=== PATIENT | female | born 1970 | race Caucasian/White ===

== ENCOUNTER 2016-10-25 07:07 | Inpatient (IN) | payer OTHER ==
[~2016-10-25] VITALS: Ht 165.1 cm; Wt 100.0 kg
[~2016-10-25 07:07] MED LIST: ADVAIR; ADVAIR 500-501 EACH IH; ADVAIR 500/501 DISK IH; ADVAIR HFA120 INHAL1 IH; AMITRIPTYLINE H10 MG PO; AMITRIPTYLINE H25 MG PO; ATARAX,VISTARIL25 MG PO; AVELOX400 MG PO; AZITHROMYCIN250 MG PO; Advair HFA 230/21 IH; BUDESONIDE EC3 MG PO; BUSPAR5 MG PO; BUSPIRONE HCL5 MG PO; BUTALB-APAP-CA1 EACH PO; CARAFATE100 MG/ML PO; CARDIZEM60 MG PO; CEFDINIR300 MG PO; CEFTIN500 MG PO; CELEXA40 MG PO; CIPRO500 MG PO; CLARITIN,ALAVAR10 MG PO; CLARITIN-D 121 EACH PO; CLARITIN10 MG PO; CLONAZEPAM0.5 MG PO; COLACE100 MG PO; CRESTOR10 MG PO; CYCLOBENZAPRINE10 MG PO; DELTASONE10 MG PO; DELTASONE20 M1 PO; DELTASONE20 MG PO; DIAMOX250 MG PO; DILTIAZEM 24HR240 MG PO; ELAVIL25 MG PO; ENTOCORT EC3 MG PO; FLAGYL500 MG PO; FLEXERIL10 MG PO; FLONASE16 G1 BOTH NARES; FLONASE16 GM NS; FLOVENT 22120 INHALA IH; FLUTICASONE PRO16 GM BOTH NARES; Flexeril PO; Flonase BOTH NARES; IMITREX6 MG/0.52 SC; IRON325 M1 PO; KLONOPIN2 MG PO; LEVAQUIN750 MG PO; LITE COAT ASPI325 M1 PO; LUMIGAN 0.50 DROP/22 BOTH EYES; Levaquin PO; MAALOX ADVANCE355 ML PO; MELATONIN5 M1 PO; MONTELUKAST SOD10 MG PO; MYCOSTATIN 100,60 ML PO; Mycostatin PO; NASAL DECONGEST30 MG PO; NEXIUM40 MG PO; ONDANSETRON HCL4 MG PO; OxyCODONE PO; PENTASA250 MG PO; PERCOCET 5/31 TABLET PO; PHENERGAN25 MG PR; PRAVASTATIN SOD40 MG PO; PREDNISONE10 MG PO; PREDNISONE20 MG PO; PREDNISONE5 MG PO; PREDNISONE50 MG PO; PROAIR; PROAIR HFA8.5 GM IH; PROMETHAZINE HC25 M1 PO; PROTONIX40 MG PO; PROVENTIL HFA6.7 GM IH; PROVENTIL,2.5 MG/0.5 IH; PROVENTIL,2.5 MG/3 M IH; PROVENTIL2.5 MG/3 M IH; PSEUDOEPHEDRINE30 MG PO; PULMICORT FLE180 MCG IH; PULMICORT0.5 MG/21 BOTH NARES; PULMICORT1 MG/2 ML IH; Protonix PO; Proventil,Ventolin 0 IH; Proventil,Ventolin H IH; REGLAN10 MG PO; SALINE NASAL SP45 ML BOTH NARES; SINGULAIR; SINGULAIR10 MG PO; SPIRIVA RESPIMAT4 GM IH; SPIRIVA1 INHALATI IH; SUCRALFATE1 GM/10 ML PO; SUDAFED30 MG PO; SUPHEDRIN30 MG PO; SYMBICORT60 INHALAT IH; Singulair PO; Sterapred 5 mg Uni-P PO; THEO-DUR,THEOC200 MG PO; THEO-DUR,THEOC300 MG PO; THEOCHRON200 MG PO; TOPAMAX100 MG PO; TOPAMAX50 MG PO; TRAMADOL HCL50 MG PO; TUMS500 MG PO; TYLENOL REGULA325 MG PO; Theo-Dur,Theocron PO; Tums,OsCal PO; ULTRAM50 MG PO; Ultram PO; VITAMIN D2000 UNIT PO; VITAMIN D22000 UNIT PO; XOLAIR150 MG SC; Xanax PO; ZANTAC150 MG PO; ZOFRAN4 MG PO; ZYRTEC10 M2 PO; ZyrTEC PO; [UNRECOGNIZED DRUG - OTHER]; [UNRECOGNIZED DRUG - OTHER]; [UNRECOGNIZED DRUG - OTHER] PO; [UNRECOGNIZED DRUG - OTHER] PO; oxyCODONE PO; predniSONE PO
[2016-10-25 07:52] LABS: HEMATOCRIT 42.9 % (36.0-46.0); MCH 27.3 PG (29.0-34.0); MCHC 32.4 G/DL (30.0-36.0); MCV 84.3 FL (83-99); MEAN PLAT.VOLUME 9.6 uM^3 (9.5-12.4); PLATELET COUNT 342 K/uL (156-360); RBC DIS.WIDTH-CV 15.1 % (11.8-14.6); RBC DIS.WIDTH-SD 46.3 % (39-53); RED BLOOD COUNT 5.09 M/uL (3.80-5.20); WHITE BLOOD COUNT 9.6 K/uL (4.1-10.2)
[2016-10-25 07:58] LABS: CARBON DIOXIDE (BICARBONATE) 27.9 MEQ/L (20-31)
[2016-10-25 08:28] LABS: ANION GAP 10 MEQ/L (2-14); CHLORIDE 105 MEQ/L (99-109); GFR ESTIMATE (CALCULATED) > 59 mL/min/; GLUCOSE 88 mg/dL (70-99); POTASSIUM 3.6 MEQ/L (3.7-5.4); SAMPLE HEMOLYSIS CHECK 0; SAMPLE ICTERIC CHECK 0; SAMPLE LIPEMIA CHECK 0; SODIUM 140 MEQ/L (136-147); UREA NITROGEN (BUN) 10 mg/dL (9-23)
[2016-10-25 08:32] LABS: QUANTITATIVE HCG < 4.0 MIU/ML
[2016-10-25 08:44] LABS: THEOPHYLLINE < 2.5 MCG/ML (10-20)
[2016-10-25] MEDS ORDERED: VITAMIN D5000 UNI1 PO (11:00)
[2016-10-25] MEDS ORDERED: TOPAMAX25 MG PO (11:05)
[2016-10-25] MEDS ORDERED: BREO ELLIPTA 21 EACH IH (11:07)
[2016-10-25] MEDS ORDERED: PROTONIX40 MG PO (11:07)
[2016-10-25] MEDS ORDERED: FLEXERIL10 MG PO (11:08)
[2016-10-25] MEDS ORDERED: TRAMADOL HCL50 MG PO (11:08)
[2016-10-25] MEDS ORDERED: WOMAN'S LAXATIVE5 M1 PO (11:12)
[2016-10-25 12:25] VITALS: BP 142/91
[2016-10-25 15:15] VITALS: BP 125/67
[2016-10-25 20:24] VITALS: BP 119/63
[2016-10-26] VITALS (7 sets, daily range): BP systolic 96–144; BP diastolic 51–71
[2016-10-26 12:30] LABS: INFLUENZA A VIRAL ANTIGEN NEGATIVE; INFLUENZA B VIRAL ANTIGEN NEGATIVE
[2016-10-27 03:55] VITALS: BP 109/55
[2016-10-27 08:04] LABS: ALKALINE PHOSPHATASE 62 IU/L (3-129); ANION GAP 13 MEQ/L (2-14); CHLORIDE 103 MEQ/L (99-109); GFR ESTIMATE (CALCULATED) 52 mL/min/; GLUCOSE 124 mg/dL (70-99); POTASSIUM 4.2 MEQ/L (3.7-5.4); SAMPLE HEMOLYSIS CHECK 0; SAMPLE ICTERIC CHECK 0; SAMPLE LIPEMIA CHECK 0; SODIUM 138 MEQ/L (136-147); TOTAL BILIRUBIN 0.2 MG/DL (0.0-1.0)
[2016-10-27 08:07] LABS: UREA NITROGEN (BUN) 23 mg/dL (9-23)
[2016-10-27 08:12] LABS: HEMATOCRIT 40.2 % (36.0-46.0); MCHC 32.1 G/DL (30.0-36.0); MCV 84.1 FL (83-99); PLATELET COUNT 353 K/uL (156-360); RBC DIS.WIDTH-CV 16.3 % (11.8-14.6); RBC DIS.WIDTH-SD 50.7 % (39-53); RED BLOOD COUNT 4.78 M/uL (3.80-5.20)
[2016-10-27 08:18] LABS: WHITE BLOOD COUNT 24.8 K/uL (4.1-10.2)
[2016-10-27 08:24] LABS: ABS NEUTROPHIL COUNT 23.6; BAND NEUTROPHILS 2.2 % (0-8.0); EOSINOPHIL ABS CT 0; INSTRUMENT ABS NEUTROPHIL CT 23.2 K/uL; LYMPHOCYTES 2.2 % (15.0-45.0); PLAT.SUFFICIENCY ADEQUATE
[2016-10-27 12:35] VITALS: BP 122/65
[2016-10-27 17:16] VITALS: BP 125/66
[2016-10-27 19:25] VITALS: BP 119/55
[2016-10-27 23:26] VITALS: BP 115/53
[2016-10-28 08:00] VITALS: BP 123/64
[2016-10-28 08:34] LABS: HEMATOCRIT 38.9 % (36.0-46.0); MCHC 32.1 G/DL (30.0-36.0); MEAN PLAT.VOLUME 9.7 uM^3 (9.5-12.4); PLATELET COUNT 344 K/uL (156-360); RBC DIS.WIDTH-CV 16.5 % (11.8-14.6); RBC DIS.WIDTH-SD 50.6 % (39-53); RED BLOOD COUNT 4.63 M/uL (3.80-5.20); WHITE BLOOD COUNT 22.5 K/uL (4.1-10.2)
[2016-10-28 09:06] LABS: ALKALINE PHOSPHATASE 58 IU/L (3-129); ANION GAP 14 MEQ/L (2-14); CHLORIDE 108 MEQ/L (99-109); GFR ESTIMATE (CALCULATED) 57 mL/min/; GLUCOSE 119 mg/dL (70-99); POTASSIUM 4.2 MEQ/L (3.7-5.4); SAMPLE HEMOLYSIS CHECK 0; SAMPLE ICTERIC CHECK 0; SAMPLE LIPEMIA CHECK 0; SODIUM 144 MEQ/L (136-147); UREA NITROGEN (BUN) 22 mg/dL (9-23)
[2016-10-28 09:10] LABS: TOTAL BILIRUBIN 0.3 MG/DL (0.0-1.0)
[2016-10-28 15:35] VITALS: BP 107/51
[2016-10-28 15:36] VITALS: BP 125/58
[2016-10-28 19:30] VITALS: BP 117/58
[2016-10-29 00:06] VITALS: BP 122/61
[2016-10-29 03:21] VITALS: BP 120/57
[2016-10-29 08:32] VITALS: BP 128/65
[2016-10-29 09:29] LABS: HEMATOCRIT 39.9 % (36.0-46.0); MCHC 32.3 G/DL (30.0-36.0); MCV 83.6 FL (83-99); MEAN PLAT.VOLUME 9.4 uM^3 (9.5-12.4); PLATELET COUNT 347 K/uL (156-360); RBC DIS.WIDTH-CV 16.5 % (11.8-14.6); RBC DIS.WIDTH-SD 51.2 % (39-53); RED BLOOD COUNT 4.77 M/uL (3.80-5.20); WHITE BLOOD COUNT 17.5 K/uL (4.1-10.2)
[2016-10-29 10:08] LABS: ALKALINE PHOSPHATASE 63 IU/L (3-129); ANION GAP 12 MEQ/L (2-14); CHLORIDE 102 MEQ/L (99-109); GFR ESTIMATE (CALCULATED) 57 mL/min/; GLUCOSE 177 mg/dL (70-99); POTASSIUM 3.9 MEQ/L (3.7-5.4); SAMPLE HEMOLYSIS CHECK 0; SAMPLE ICTERIC CHECK 0; SAMPLE LIPEMIA CHECK 0; SODIUM 137 MEQ/L (136-147); TOTAL BILIRUBIN 0.3 MG/DL (0.0-1.0); UREA NITROGEN (BUN) 21 mg/dL (9-23)
[2016-10-29 10:44] VITALS: BP 130/69
[2016-10-29] MEDS ORDERED: AMOX TR-K CLV1 EAC4 PO (11:26)
[2016-10-29] MEDS ORDERED: SPIRIVA RESPIMAT4 GM IH (11:26)
[2016-10-29] MEDS ORDERED: ADVAIR HFA120 INHAL1 IH (11:29)
[2016-10-29] MEDS ORDERED: DUONEB 2.5-0.5 M3 ML AEROSOL (11:30)
[2016-10-29] MEDS ORDERED: THEO-DUR,THEOC300 MG PO (11:31)
[2016-10-29] MEDS ORDERED: DOCUSATE SODIU100 MG PO (11:31)
[2016-10-29] MEDS ORDERED: POLYETHYLENE GL17 GM PO (11:32)
[2016-10-29] MEDS ORDERED: PREDNISONE10 MG PO (11:35)
== END 2016-10-29 13:02 | disposition home or self-care (01) | DRG 203 ==
LOC: EME 07:07 → 2EAST 11:17 → EDOF 11:17 → 2EAST 12:17
PROVIDERS: Hospitalist; Nurse Practitioner Adult Health; Nurse Practitioner Family
DX: J45.51 Severe persistent asthma with (acute) exacerbation (principal); J32.9 Chronic sinusitis, unspecified; J30.9 Allergic rhinitis, unspecified; G47.33 Obstructive sleep apnea (adult) (pediatric); K21.9 Gastro-esophageal reflux disease without esophagitis; I10 Essential (primary) hypertension; F41.9 Anxiety disorder, unspecified; R00.0 Tachycardia, unspecified; E66.9 Obesity, unspecified; G43.909 Migraine, unspecified, not intractable, without status migrainosus; Z91.14 Patient's other noncompliance with medication regimen; Z68.36 Body mass index [BMI] 36.0-36.9, adult; I25.2 Old myocardial infarction; Z95.1 Presence of aortocoronary bypass graft; Z86.73 Personal history of transient ischemic attack (TIA), and cerebral infarction without residual deficits; Z79.82 Long term (current) use of aspirin
CPT/HCPCS: 71020; 80048; 80053; 80198; 82248; 82803; 84702; 85025; 85027; 87502; 93005; 94640; 94640 76; 94644; 94799; 99202; 99281; 99285; J1200; J2060; J2405; J2930; J7512; S0028

== ENCOUNTER 2017-01-05 20:03 | Observation (INO) | payer OTHER ==
[~2017-01-05] VITALS: Ht 165.1 cm; Wt 97.0 kg
[~2017-01-05 20:03] MED LIST changes: +AMOX TR-K CLV1 EAC4 PO; +BREO ELLIPTA 21 EACH IH; +DOCUSATE SODIU100 MG PO; +DUONEB 2.5-0.5 M3 ML AEROSOL; +POLYETHYLENE GL17 GM PO; +TOPAMAX25 MG PO; +VITAMIN D5000 UNI1 PO; +WOMAN'S LAXATIVE5 M1 PO
[2017-01-05 20:33] LABS: HEMATOCRIT 43.6 % (36.0-46.0); MCH 27.8 PG (29.0-34.0); MCHC 32.8 G/DL (30.0-36.0); MCV 84.8 FL (83-99); PLATELET COUNT 407 K/uL (156-360); RBC DIS.WIDTH-CV 15.7 % (11.8-14.6); RBC DIS.WIDTH-SD 48.4 % (39-53); RED BLOOD COUNT 5.14 M/uL (3.80-5.20); WHITE BLOOD COUNT 13.6 K/uL (4.1-10.2)
[2017-01-05 20:42] LABS: CHLORIDE 109 mEq/L (99-109); POTASSIUM 3.2 mEq/L (3.7-5.4); SODIUM 141 mEq/L (136-147)
[2017-01-05 20:44] LABS: GLUCOSE 94 mg/dL (70-99)
[2017-01-05 20:45] LABS: ANION GAP 14 MEQ/L (2-14)
[2017-01-05] MEDS ORDERED: BUSPAR10 MG PO (20:45)
[2017-01-05 20:46] LABS: TOTAL BILIRUBIN 0.2 mg/dL (0.0-1.0)
[2017-01-05] MEDS ORDERED: proair (20:46)
[2017-01-05] MEDS ORDERED: symbicort (20:46)
[2017-01-05 20:47] LABS: ALKALINE PHOSPHATASE 71 IU/L (3-129)
[2017-01-05] MEDS ORDERED: ZYRTEC10 M2 PO (20:47)
[2017-01-05] MEDS ORDERED: sudafed (20:47)
[2017-01-05 20:48] LABS: GFR ESTIMATE (CALCULATED) 43 mL/min/
[2017-01-05 20:49] LABS: UREA NITROGEN (BUN) 18 mg/dL (9-23)
[2017-01-05 20:56] LABS: QUANTITATIVE HCG < 4.0 MIU/ML
[2017-01-06 03:29] VITALS: BP 167/107
[2017-01-06 06:49] LABS: BASOPHIL COUNT 0.1 K/uL (0-0.1); EOSINOPHIL (%) 14.2 % (0-5); EOSINOPHIL COUNT 1.8 K/uL (0-0.3); IMMATURE GRANULOCYTE (%) 0.4 % (0.0-0.7); IMMATURE GRANULOCYTE COUNT 0.1 K/uL; INSTRUMENT ABS NEUTROPHIL CT 6.4 K/uL; LYMPHOCYTE COUNT 3.7 K/uL (1.0-2.8); MCH 28.9 PG (29.0-34.0); MCHC 33.3 G/DL (30.0-36.0); MCV 86.8 FL (83-99); MEAN PLAT.VOLUME 9.4 uM^3 (9.5-12.4); MONOCYTE (%) 5.7 % (3-12); MONOCYTE COUNT 0.7 K/uL (0-0.8); NEUTROPHIL (%) 49.9 % (45-76); NEUTROPHIL COUNT 6.4 K/uL (1.8-6.4); PLATELET COUNT 344 K/uL (156-360); RBC DIS.WIDTH-CV 15.9 % (11.8-14.6); RBC DIS.WIDTH-SD 50.3 % (39-53); RED BLOOD COUNT 4.61 M/uL (3.80-5.20); WHITE BLOOD COUNT 12.8 K/uL (4.1-10.2)
[2017-01-06 07:19] LABS: ANION GAP 11 MEQ/L (2-14); CHLORIDE 107 MEQ/L (99-109); GFR ESTIMATE (CALCULATED) 52 mL/min/; GLUCOSE 136 mg/dL (70-99); POTASSIUM 3.2 MEQ/L (3.7-5.4); SAMPLE HEMOLYSIS CHECK 0; SAMPLE ICTERIC CHECK 0; SAMPLE LIPEMIA CHECK 0; SODIUM 141 MEQ/L (136-147); UREA NITROGEN (BUN) 14 mg/dL (9-23)
[2017-01-06 09:10] VITALS: BP 125/71
[2017-01-06 12:07] VITALS: BP 130/74
[2017-01-06 12:10] LABS: ADD MIUA? YES; BILIRUBIN NEGATIVE; BLOOD SMALL; COLOR YELLOW ((YELLOW)); GLUCOSE (STRIP) NEGATIVE; KETONES NEGATIVE; LEUKOCYTES NEGATIVE; NITRITE NEGATIVE; PROTEIN (STRIP) NEGATIVE; SPECIFIC GRAVITY 1.041 (1.000-1.030); UROBILINOGEN 0.2 MG/DL (0.2-1.0)
[2017-01-06 13:12] LABS: BACTERIA NONE SEEN /HPF; EPITHELIAL CELLS 2+ /HPF; MUCUS TRACE /LPF; RED BLOOD CELLS 0-5 /HPF (0-5); UCUL ADDED? NO; WHITE BLOOD CELLS 0-5 /HPF (0-5)
[2017-01-06 16:42] VITALS: BP 177/94
[2017-01-06 20:24] VITALS: BP 136/84
[2017-01-06] MEDS ORDERED: BREO ELLIPTA 21 EACH IH (21:09)
[2017-01-06] MEDS ORDERED: SYMBICORT60 INHALAT IH (21:11)
[2017-01-06 23:39] VITALS: BP 125/66
[2017-01-07 04:05] VITALS: BP 123/79
[2017-01-07 07:11] VITALS: BP 131/81
[2017-01-07 10:46] VITALS: BP 138/80
[2017-01-07] MEDS ORDERED: PANTOPRAZOLE SO40 MG PO (14:08)
[2017-01-07] MEDS ORDERED: MYCOSTATIN 100,60 ML PO (14:09)
[2017-01-07] MEDS ORDERED: TRAMADOL HCL50 MG PO (15:26)
== END 2017-01-07 17:22 | disposition home or self-care (01) ==
LOC: EME 20:03 → EDOF 01-06 02:29 → 5WEST 01-06 02:29
PROVIDERS: Hospitalist
DX: R10.84 Generalized abdominal pain (principal); K29.70 Gastritis, unspecified, without bleeding; K29.80 Duodenitis without bleeding; B37.81 Candidal esophagitis; R11.2 Nausea with vomiting, unspecified; K44.9 Diaphragmatic hernia without obstruction or gangrene; N17.9 Acute kidney failure, unspecified; E87.6 Hypokalemia; J45.909 Unspecified asthma, uncomplicated; R19.5 Other fecal abnormalities; E87.2 Acidosis; E86.0 Dehydration; I47.1 Supraventricular tachycardia; G43.909 Migraine, unspecified, not intractable, without status migrainosus; J32.9 Chronic sinusitis, unspecified; I10 Essential (primary) hypertension; K21.9 Gastro-esophageal reflux disease without esophagitis; Z86.73 Personal history of transient ischemic attack (TIA), and cerebral infarction without residual deficits; E66.9 Obesity, unspecified; Z98.818 Other dental procedure status; Z79.82 Long term (current) use of aspirin
CPT/HCPCS: 71020; 74177; 80048; 80053; 80198; 81003; 82272; 84702; 85025; 85027; 87493; 88305; 88312; 88342 TC; 94640; 94640 76; 99202; 99281; 99284; C9113; G0378; J1170; J1630; J2270; J2405; J3010; J3480; J7030

== ENCOUNTER 2017-01-12 17:34 | Emergency (ER) | payer OTHER ==
[~2017-01-12] VITALS: Ht 162.6 cm; Wt 90.8 kg
[~2017-01-12 17:34] MED LIST changes: +BUSPAR10 MG PO; +PANTOPRAZOLE SO40 MG PO; +proair; +sudafed; +symbicort
[2017-01-12 18:42] LABS: HEMATOCRIT 39.2 % (36.0-46.0); MCH 28.3 PG (29.0-34.0); MCHC 32.7 G/DL (30.0-36.0); MCV 86.7 FL (83-99); MEAN PLAT.VOLUME 9.5 uM^3 (9.5-12.4); PLATELET COUNT 306 K/uL (156-360); RBC DIS.WIDTH-CV 15.6 % (11.8-14.6); RBC DIS.WIDTH-SD 49.4 % (39-53); RED BLOOD COUNT 4.52 M/uL (3.80-5.20); WHITE BLOOD COUNT 11.2 K/uL (4.1-10.2)
[2017-01-12 18:52] LABS: CHLORIDE 108 mEq/L (99-109); SODIUM 141 mEq/L (136-147)
[2017-01-12 18:53] LABS: POTASSIUM 3.9 mEq/L (3.7-5.4)
[2017-01-12 18:54] LABS: GLUCOSE 86 mg/dL (70-99)
[2017-01-12 18:55] LABS: ANION GAP 8 MEQ/L (2-14)
[2017-01-12 18:56] LABS: TOTAL BILIRUBIN 0.2 mg/dL (0.0-1.0)
[2017-01-12 18:58] LABS: ALKALINE PHOSPHATASE 66 IU/L (3-129); GFR ESTIMATE (CALCULATED) 57 mL/min/
[2017-01-12 18:59] LABS: UREA NITROGEN (BUN) 10 mg/dL (9-23)
[2017-01-12] MEDS ORDERED: ULTRAM50 MG PO (20:14)
[2017-01-12 20:28] VITALS: BP 144/84
== END 2017-01-12 20:29 | disposition home or self-care (01) ==
LOC: EME 17:34
PROVIDERS: Emergency Medicine
DX: R60.9 Edema, unspecified (principal); I10 Essential (primary) hypertension; I25.2 Old myocardial infarction; K21.9 Gastro-esophageal reflux disease without esophagitis; Z95.1 Presence of aortocoronary bypass graft
CPT/HCPCS: 80053; 85027; 99281; 99284; G0480

== ENCOUNTER 2017-04-26 16:21 | Observation (INO) | payer OTHER ==
[~2017-04-26] VITALS: Ht 162.6 cm; Wt 98.1 kg
[2017-04-26 18:09] LABS: TROP-I INTERPRETATION NEGATIVE; TROPONIN-I < 0.01 ng/mL (0.0-0.30)
[2017-04-26 18:13] LABS: HEMATOCRIT 41.8 % (36.0-46.0); MCH 28.4 PG (29.0-34.0); MCHC 33.3 G/DL (30.0-36.0); MCV 85.5 FL (83-99); MEAN PLAT.VOLUME 10.1 uM^3 (9.5-12.4); PLATELET COUNT 331 K/uL (156-360); RBC DIS.WIDTH-CV 14.9 % (11.8-14.6); RBC DIS.WIDTH-SD 46.5 % (39-53); RED BLOOD COUNT 4.89 M/uL (3.80-5.20); WHITE BLOOD COUNT 11.7 K/uL (4.1-10.2)
[2017-04-26 18:19] LABS: CHLORIDE 109 mEq/L (99-109); POTASSIUM 3.5 mEq/L (3.7-5.4); SODIUM 142 mEq/L (136-147)
[2017-04-26 18:21] LABS: GLUCOSE 105 mg/dL (70-99)
[2017-04-26 18:22] LABS: ANION GAP 12 MEQ/L (2-14)
[2017-04-26 18:25] LABS: GFR ESTIMATE (CALCULATED) > 59 mL/min/; UREA NITROGEN (BUN) 11 mg/dL (9-23)
[2017-04-26 18:33] LABS: QUANTITATIVE HCG < 4.0 MIU/ML
[2017-04-26] MEDS ORDERED: POTASSIUM-9999 MG PO (19:47)
[2017-04-26] MEDS ORDERED: FLEXERIL10 MG PO (19:48)
[2017-04-26] MEDS ORDERED: ZANTAC150 MG PO (19:49)
[2017-04-26] MEDS ORDERED: SUDAFED PE PRE1 EACH PO (19:52)
[2017-04-26] MEDS ORDERED: PROAIR HFA8.5 GM IH (19:53)
[2017-04-26] MEDS ORDERED: CHERATUSSIN AC473 ML PO (19:55)
[2017-04-26] MEDS ORDERED: IRON325 M1 PO (19:55)
[2017-04-26] MEDS ORDERED: STOOL SOFTENER100 M1 PO (19:57)
[2017-04-26 22:13] VITALS: BP 137/91
[2017-04-27] VITALS (7 sets, daily range): BP systolic 117–133; BP diastolic 51–88
[2017-04-27 06:28] LABS: ANION GAP 12 MEQ/L (2-14); CHLORIDE 104 MEQ/L (99-109); GFR ESTIMATE (CALCULATED) > 59 mL/min/; SAMPLE HEMOLYSIS CHECK 0; SAMPLE ICTERIC CHECK 0; SAMPLE LIPEMIA CHECK 0; SODIUM 137 MEQ/L (136-147); UREA NITROGEN (BUN) 12 mg/dL (9-23)
[2017-04-27 06:32] LABS: GLUCOSE 228 mg/dL (70-99)
[2017-04-27 12:53] LABS: TROP-I INTERPRETATION NEGATIVE; TROPONIN-I < 0.01 ng/mL (0.0-0.30)
[2017-04-28 04:05] VITALS: BP 125/60
[2017-04-28 07:54] VITALS: BP 122/73
[2017-04-28 10:59] VITALS: BP 134/65
[2017-04-28] MEDS ORDERED: PROAIR HFA8.5 GM IH (12:45)
[2017-04-28] MEDS ORDERED: DILTIAZEM 24HR240 MG PO (12:46)
[2017-04-28] MEDS ORDERED: TOPIRAMATE100 MG PO (12:46)
[2017-04-28] MEDS ORDERED: BREO ELLIPTA 21 EACH IH (12:48)
[2017-04-28] MEDS ORDERED: FLONASE16 G1 BOTH NARES (12:48)
[2017-04-28] MEDS ORDERED: CARAFATE100 MG/ML PO (12:49)
[2017-04-28] MEDS ORDERED: IMITREX25 MG PO (12:52)
[2017-04-28] MEDS ORDERED: THEO-DUR,THEOC300 MG PO (12:57)
[2017-04-28] MEDS ORDERED: PREDNISONE10 MG PO (12:57)
[2017-04-28] MEDS ORDERED: BUSPAR10 MG PO (13:00)
[2017-04-28] MEDS ORDERED: MYCOSTATIN 100,60 ML PO (13:16)
== END 2017-04-28 18:09 | disposition home or self-care (01) ==
LOC: EME 16:21 → EDOF 20:13 → 5WEST 20:13 → EDOF 20:13 → ENRESERV 20:18 → 5WEST 21:55
PROVIDERS: Hospitalist; Internal Medicine Cardiovascular Disease; Nurse Practitioner Family
DX: R07.89 Other chest pain (principal); R00.0 Tachycardia, unspecified; J45.901 Unspecified asthma with (acute) exacerbation; D72.829 Elevated white blood cell count, unspecified; R47.1 Dysarthria and anarthria; G43.909 Migraine, unspecified, not intractable, without status migrainosus; I10 Essential (primary) hypertension; K21.9 Gastro-esophageal reflux disease without esophagitis; Z86.73 Personal history of transient ischemic attack (TIA), and cerebral infarction without residual deficits; Z83.2 Family history of diseases of the blood and blood-forming organs and certain disorders involving the immune mechanism; E66.9 Obesity, unspecified; Z68.37 Body mass index [BMI] 37.0-37.9, adult; E87.6 Hypokalemia; J32.9 Chronic sinusitis, unspecified; Z91.19 Patient's noncompliance with other medical treatment and regimen; Z88.6 Allergy status to analgesic agent
CPT/HCPCS: 70450; 71020; 71275; 80048; 83880; 84484; 84702; 85027; 85379; 93005; 93306; 93970; 94640; 94640 76; 94760; 94799; 99202; 99281; 99285; G0378; J1650; J2405; J2930; J7512

== ENCOUNTER 2017-07-29 01:15 | Emergency (ER) | payer OTHER ==
[~2017-07-29] VITALS: Ht 165.1 cm; Wt 101.0 kg
[~2017-07-29 01:15] MED LIST changes: +CALCIUM + D 601 EACH PO; +CHERATUSSIN AC473 ML PO; +CYTOMEL25 MCG PO; +IMITREX25 MG PO; +OXYCODONE5 MG PO; +POTASSIUM-9999 MG PO; +STOOL SOFTENER100 M1 PO; +SUDAFED PE PRE1 EACH PO; +TOPIRAMATE100 MG PO
[2017-07-29 02:02] LABS: HEMATOCRIT 43.2 % (36.0-46.0); HEMOGLOBIN 14.7 G/DL (11.9-15.5); MCH 28.7 PG (29.0-34.0); MCV 84.4 FL (83-99); PLATELET COUNT 363 K/uL (156-360); RBC DIS.WIDTH-CV 14.5 % (11.8-14.6); RBC DIS.WIDTH-SD 44.3 % (39-53); RED BLOOD COUNT 5.12 M/uL (3.80-5.20); WHITE BLOOD COUNT 16.2 K/uL (4.1-10.2)
[2017-07-29 02:14] LABS: CHLORIDE 106 mEq/L (99-109); POTASSIUM 3.8 mEq/L (3.7-5.4); SODIUM 137 mEq/L (136-147)
[2017-07-29 02:16] LABS: GLUCOSE 128 mg/dL (70-99)
[2017-07-29 02:19] LABS: SERUM ETHYL ALCOHOL 156 mg/dL
[2017-07-29 02:20] LABS: CREATININE 0.9 mg/dL (0.6-1.3); GFR ESTIMATE (CALCULATED) > 59 mL/min/
[2017-07-29 02:21] LABS: UREA NITROGEN (BUN) 13 mg/dL (9-23)
[2017-07-29 02:23] LABS: TROP-I INTERPRETATION NEGATIVE; TROPONIN-I < 0.01 ng/mL (0.0-0.30)
[2017-07-29 05:44] VITALS: BP 137/95
== END 2017-07-29 05:45 | disposition home or self-care (01) ==
LOC: EME 01:15
PROVIDERS: Emergency Medicine
DX: F10.129 Alcohol abuse with intoxication, unspecified (principal); S00.81XA Abrasion of other part of head, initial encounter; R11.2 Nausea with vomiting, unspecified; Y90.6 Blood alcohol level of 120-199 mg/100 ml; W18.30XA Fall on same level, unspecified, initial encounter; I10 Essential (primary) hypertension; I25.2 Old myocardial infarction; K21.9 Gastro-esophageal reflux disease without esophagitis; F41.9 Anxiety disorder, unspecified; Z86.73 Personal history of transient ischemic attack (TIA), and cerebral infarction without residual deficits; J45.909 Unspecified asthma, uncomplicated; Z95.1 Presence of aortocoronary bypass graft; Z88.6 Allergy status to analgesic agent; Z88.5 Allergy status to narcotic agent
CPT/HCPCS: 70450; 71046; 80048; 84484; 85027; 93005; 99281; 99285; G0480

== ENCOUNTER 2017-09-07 18:03 | Emergency (ER) | payer OTHER ==
[~2017-09-07] VITALS: Ht 165.1 cm; Wt 102.7 kg
[2017-09-07] MEDS ORDERED: BACTRIM,SEPT1 TABLET PO (19:57)
[2017-09-07] MEDS ORDERED: PROVENTIL HFA6.7 GM IH (20:01)
[2017-09-07] MEDS ORDERED: PREDNISONE20 MG PO (21:23)
[2017-09-07 21:37] VITALS: BP 161/103
== END 2017-09-07 21:38 | disposition home or self-care (01) ==
LOC: EME 18:03
DX: J44.1 Chronic obstructive pulmonary disease with (acute) exacerbation (principal); J06.9 Acute upper respiratory infection, unspecified; L03.112 Cellulitis of left axilla; A49.02 Methicillin resistant Staphylococcus aureus infection, unspecified site; R06.03 Acute respiratory distress; I10 Essential (primary) hypertension; F41.9 Anxiety disorder, unspecified; I25.2 Old myocardial infarction; K21.9 Gastro-esophageal reflux disease without esophagitis; Z95.1 Presence of aortocoronary bypass graft; Z86.73 Personal history of transient ischemic attack (TIA), and cerebral infarction without residual deficits; Z88.6 Allergy status to analgesic agent; Z88.5 Allergy status to narcotic agent
CPT/HCPCS: 71045; 94640; 94644; 99281; 99285; J7512

== ENCOUNTER 2017-12-22 08:53 | Inpatient (IN) | payer OTHER ==
[~2017-12-22] VITALS: Ht 165.1 cm; Wt 103.3 kg
[~2017-12-22 08:53] MED LIST changes: +BACTRIM,SEPT1 TABLET PO; -ELAVIL25 MG PO; +ELAVIL50 MG PO; -OXYCODONE5 MG PO; +ROXICODONE5 MG PO
[2017-12-22 09:33] LABS: HEMATOCRIT 39.5 % (36.0-46.0); HEMOGLOBIN 13.1 G/DL (11.9-15.5); MCH 27.8 PG (29.0-34.0); MCHC 33.2 G/DL (30.0-36.0); MCV 83.7 FL (83-99); PLATELET COUNT 323 K/uL (156-360); RBC DIS.WIDTH-CV 14.6 % (11.8-14.6); RBC DIS.WIDTH-SD 44.5 % (39-53); RED BLOOD COUNT 4.72 M/uL (3.80-5.20)
[2017-12-22 09:46] LABS: CHLORIDE 111 mEq/L (99-109); SODIUM 141 mEq/L (136-147)
[2017-12-22 09:47] LABS: GLUCOSE 108 mg/dL (70-99)
[2017-12-22 09:51] LABS: CREATININE 1.1 mg/dL (0.6-1.3); GFR ESTIMATE (CALCULATED) 57 mL/min/
[2017-12-22 09:52] LABS: UREA NITROGEN (BUN) 14 mg/dL (9-23)
[2017-12-22 09:55] LABS: TROP-I INTERPRETATION NEGATIVE; TROPONIN-I < 0.01 ng/mL (0.0-0.30)
[2017-12-22] MEDS ORDERED: ZITHROMAX Z-PA250 MG PO (11:03)
[2017-12-22] MEDS ORDERED: PREDNISONE20 MG PO (11:03)
[2017-12-22] MEDS ORDERED: VENTOLIN HFA18 GM IH (11:03)
[2017-12-22] MEDS ORDERED: PANTOPRAZOLE SO40 MG PO (13:54)
[2017-12-22] MEDS ORDERED: TOPAMAX25 MG PO (13:56)
[2017-12-22] MEDS ORDERED: DUONEB 2.5-0.5 M3 ML AEROSOL (13:58)
[2017-12-22] MEDS ORDERED: DOXYCYCLINE MO100 MG PO (14:02)
[2017-12-22 15:50] VITALS: BP 129/62
[2017-12-22 22:54] VITALS: BP 128/61
[2017-12-23 06:40] LABS: HEMATOCRIT 38.4 % (36.0-46.0); HEMOGLOBIN 12.2 G/DL (11.9-15.5); MCH 27.3 PG (29.0-34.0); MCHC 31.8 G/DL (30.0-36.0); MCV 85.9 FL (83-99); PLATELET COUNT 301 K/uL (156-360); RBC DIS.WIDTH-CV 15.1 % (11.8-14.6); RBC DIS.WIDTH-SD 47.6 % (39-53); RED BLOOD COUNT 4.47 M/uL (3.80-5.20)
[2017-12-23 07:05] LABS: CHLORIDE 110 MEQ/L (99-109); CREATININE 0.9 MG/DL (0.6-1.3); GFR ESTIMATE (CALCULATED) > 59 mL/min/; POTASSIUM 4.5 MEQ/L (3.7-5.4); SODIUM 137 MEQ/L (136-147); UREA NITROGEN (BUN) 12 mg/dL (9-23)
[2017-12-23 07:06] LABS: GLUCOSE 166 mg/dL (70-99)
[2017-12-23 07:20] VITALS: BP 136/73
[2017-12-23 15:30] VITALS: BP 137/78
[2017-12-23 23:15] VITALS: BP 133/72
[2017-12-24 07:12] VITALS: BP 136/67
[2017-12-24 16:30] VITALS: BP 135/93
[2017-12-24 17:57] LABS: C DIFF TOXIN NEGATIVE (NEGATIVE)
[2017-12-25 00:28] VITALS: BP 124/65
[2017-12-25 07:10] VITALS: BP 129/69
[2017-12-25 16:22] VITALS: BP 124/64
[2017-12-26 00:27] VITALS: BP 138/72
[2017-12-26 07:41] VITALS: BP 145/76
[2017-12-26] MEDS ORDERED: AMOX TR-K CLV1 EAC4 PO (12:56)
[2017-12-26] MEDS ORDERED: PRAZOSIN HCL1 MG PO (12:57)
[2017-12-26] MEDS ORDERED: FLORASTOR250 MG PO (12:58)
[2017-12-26] MEDS ORDERED: ESCITALOPRAM OX10 MG PO (12:58)
[2017-12-26] MEDS ORDERED: THEOPHYLLINE400 MG PO (12:59)
[2017-12-26] MEDS ORDERED: PREDNISONE10 MG PO (13:00)
[2017-12-26] MEDS ORDERED: SPIRIVA RESPIMAT4 GM IH (14:20)
[2017-12-26] MEDS ORDERED: DUONEB 2.5-0.5 M3 ML AEROSOL (14:20)
== END 2017-12-26 16:14 | disposition home or self-care (01) | DRG 203 ==
LOC: EME 08:53 → 5EAST 13:05 → EDOF 13:05 → ENRESERV 13:06 → 5EAST 14:42 → ENRESERV 12-23 → 5EAST 12-23 16:53
PROVIDERS: Physician Assistant
DX: J45.901 Unspecified asthma with (acute) exacerbation (principal); R00.0 Tachycardia, unspecified; J20.9 Acute bronchitis, unspecified; D72.829 Elevated white blood cell count, unspecified; D41.9 Neoplasm of uncertain behavior of unspecified urinary organ; R11.2 Nausea with vomiting, unspecified; J32.9 Chronic sinusitis, unspecified; I10 Essential (primary) hypertension; F32.9 Major depressive disorder, single episode, unspecified; K21.9 Gastro-esophageal reflux disease without esophagitis; F43.12 Post-traumatic stress disorder, chronic; F43.11 Post-traumatic stress disorder, acute; E66.9 Obesity, unspecified; Z88.6 Allergy status to analgesic agent; Z91.14 Patient's other noncompliance with medication regimen; Z68.37 Body mass index [BMI] 37.0-37.9, adult; Z79.899 Other long term (current) drug therapy; Z95.1 Presence of aortocoronary bypass graft
CPT/HCPCS: 71046; 80048; 82803; 84484; 85027; 87493; 93005; 94640; 94640 76; 94644; 94799; 99202; 99281; 99285; J1644; J2405; J2930; J3475; J7512

== ENCOUNTER 2018-01-17 20:59 | Observation (INO) | payer OTHER ==
[~2018-01-17] VITALS: Ht 162.6 cm; Wt 107.1 kg
[~2018-01-17 20:59] MED LIST changes: -CALCIUM + D 601 EACH PO; -CYTOMEL25 MCG PO; +DOXYCYCLINE MO100 MG PO; +ESCITALOPRAM OX10 MG PO; +FLORASTOR250 MG PO; +PRAZOSIN HCL1 MG PO; -ROXICODONE5 MG PO; +THEOPHYLLINE400 MG PO; +VENTOLIN HFA18 GM IH; +ZITHROMAX Z-PA250 MG PO
[2018-01-17 21:54] LABS: HEMATOCRIT 37.8 % (36.0-46.0); HEMOGLOBIN 12.8 G/DL (11.9-15.5); MCH 28.6 PG (29.0-34.0); MCHC 33.9 G/DL (30.0-36.0); MCV 84.6 FL (83-99); PLATELET COUNT 326 K/uL (156-360); RBC DIS.WIDTH-CV 15.7 % (11.8-14.6); RBC DIS.WIDTH-SD 48.1 % (39-53); RED BLOOD COUNT 4.47 M/uL (3.80-5.20); WHITE BLOOD COUNT 12.3 K/uL (4.1-10.2)
[2018-01-17 21:57] LABS: CHLORIDE 109 mEq/L (99-109); POTASSIUM 3.9 mEq/L (3.7-5.4); SODIUM 142 mEq/L (136-147)
[2018-01-17 21:59] LABS: GLUCOSE 84 mg/dL (70-99)
[2018-01-17 22:03] LABS: CREATININE 1.4 mg/dL (0.6-1.3); GFR ESTIMATE (CALCULATED) 43 mL/min/; UREA NITROGEN (BUN) 12 mg/dL (9-23)
[2018-01-17 22:09] LABS: TROP-I INTERPRETATION NEGATIVE; TROPONIN-I < 0.01 ng/mL (0.0-0.30)
[2018-01-18] MEDS ORDERED: PROMETHAZINE HC25 M1 PO (01:31)
[2018-01-18] MEDS ORDERED: BUTALB-APAP-CA1 EACH PO (01:33)
[2018-01-18] MEDS ORDERED: AMITRIPTYLINE H25 MG PO (01:34)
[2018-01-18] MEDS ORDERED: TUMS500 MG PO (01:42)
[2018-01-18] MEDS ORDERED: LEXAPRO10 MG PO ×2 (01:50→12:42)
[2018-01-18 03:45] LABS: TROP-I INTERPRETATION NEGATIVE; TROPONIN-I < 0.01 ng/mL (0.0-0.30)
[2018-01-18 07:50] VITALS: BP 115/80
[2018-01-18 09:41] LABS: HEMATOCRIT 38.7 % (36.0-46.0); HEMOGLOBIN 12.4 G/DL (11.9-15.5); MCH 27.8 PG (29.0-34.0); MCV 86.8 FL (83-99); PLATELET COUNT 318 K/uL (156-360); RBC DIS.WIDTH-CV 15.9 % (11.8-14.6); RBC DIS.WIDTH-SD 50.1 % (39-53); RED BLOOD COUNT 4.46 M/uL (3.80-5.20); WHITE BLOOD COUNT 8.1 K/uL (4.1-10.2)
[2018-01-18 09:55] LABS: CHLORIDE 108 MEQ/L (99-109); POTASSIUM 3.7 MEQ/L (3.7-5.4); SODIUM 141 MEQ/L (136-147)
[2018-01-18 10:01] LABS: CREATININE 1.1 MG/DL (0.6-1.3); GFR ESTIMATE (CALCULATED) 57 mL/min/; GLUCOSE 105 mg/dL (70-99); UREA NITROGEN (BUN) 9 mg/dL (9-23)
[2018-01-18 10:07] LABS: TROP-I INTERPRETATION NEGATIVE; TROPONIN-I < 0.01 ng/mL (0.0-0.30)
[2018-01-18 11:51] VITALS: BP 130/74
[2018-01-18] MEDS ORDERED: PRAZOSIN HCL1 MG PO (12:42)
[2018-01-18] MEDS ORDERED: PREDNISONE10 MG PO (12:42)
[2018-01-18] MEDS ORDERED: TOPAMAX25 MG PO (12:42)
[2018-01-18 16:00] VITALS: BP 122/79
== END 2018-01-18 18:48 | disposition home or self-care (01) ==
LOC: EME 20:59 → EDOF 01-18 00:46 → ENRESERV 01-18 00:48 → 4SOUTH 01-18 02:12
PROVIDERS: Physician Assistant
DX: R07.9 Chest pain, unspecified (principal); R61 Generalized hyperhidrosis; J45.909 Unspecified asthma, uncomplicated; R00.0 Tachycardia, unspecified; D72.829 Elevated white blood cell count, unspecified; N28.9 Disorder of kidney and ureter, unspecified; G43.909 Migraine, unspecified, not intractable, without status migrainosus; F41.9 Anxiety disorder, unspecified; Z88.6 Allergy status to analgesic agent; Z91.041 Radiographic dye allergy status; Z88.8 Allergy status to other drugs, medicaments and biological substances
CPT/HCPCS: 71046; 71275; 80048; 81003; 84484; 85027; 85379; 93005; 94640; 94799; 99281; 99284; G0378; J1644; J2270; J2405; J7030; J7040; S0028

== ENCOUNTER 2018-02-25 08:37 | Emergency (ER) | payer OTHER ==
[~2018-02-25] VITALS: Ht 165.1 cm; Wt 106.9 kg
[~2018-02-25 08:37] MED LIST changes: +LEXAPRO10 MG PO
[2018-02-25 09:49] LABS: HEMATOCRIT 41.5 % (36.0-46.0); HEMOGLOBIN 13.7 G/DL (11.9-15.5); MCH 28.7 PG (29.0-34.0); PLATELET COUNT 346 K/uL (156-360); RBC DIS.WIDTH-CV 15.4 % (11.8-14.6); RBC DIS.WIDTH-SD 49.1 % (39-53); RED BLOOD COUNT 4.77 M/uL (3.80-5.20); WHITE BLOOD COUNT 10.5 K/uL (4.1-10.2)
[2018-02-25 10:00] LABS: CHLORIDE 108 mEq/L (99-109); SODIUM 140 mEq/L (136-147)
[2018-02-25 10:02] LABS: GLUCOSE 93 mg/dL (70-99)
[2018-02-25 10:06] LABS: CREATININE 1.3 mg/dL (0.6-1.3); GFR ESTIMATE (CALCULATED) 47 mL/min/; UREA NITROGEN (BUN) 10 mg/dL (9-23)
[2018-02-25 10:14] LABS: QUANTITATIVE HCG < 4.0 MIU/ML
[2018-02-25 11:17] LABS: AMPHETAMINE NEGATIVE (500 ng/mL); BARBITURATES PRESUMPTIVE POSITIVE (200 ng/mL); BENZODIAZEPINES NEGATIVE (150 ng/mL); BUPRENORPHINE NEGATIVE (10 ng/mL); COCAINE NEGATIVE (150 ng/mL); METHADONE NEGATIVE (200 ng/mL); METHAMPHETAMINE PRESUMPTIVE POSITIVE (500 ng/mL); OPIATES (MORPHINE) NEGATIVE (100 ng/mL); OXYCODONE NEGATIVE (100 ng/mL); PHENCYCLIDINE NEGATIVE (25 ng/mL); PROPOXYPHENE NEGATIVE (300 ng/mL); THC CANNABINOIDS NEGATIVE (50 ng/mL); TRICYCLIC ANTIDEPRESSANTS PRESUMPTIVE POSITIVE (300 ng/mL)
[2018-02-25 12:21] LABS: TROP-I INTERPRETATION NEGATIVE; TROPONIN-I < 0.01 ng/mL (0.0-0.30)
[2018-02-25] MEDS ORDERED: ZITHROMAX250 MG PO (13:13)
[2018-02-25] MEDS ORDERED: PREDNISONE50 MG PO (13:13)
[2018-02-25] MEDS ORDERED: ATIVAN0.5 MG PO (13:20)
[2018-02-25 14:03] VITALS: BP 149/81
== END 2018-02-25 14:04 | disposition home or self-care (01) ==
LOC: EME 08:37
PROVIDERS: Nurse Practitioner Family
DX: F32.9 Major depressive disorder, single episode, unspecified (principal); F41.9 Anxiety disorder, unspecified; J45.901 Unspecified asthma with (acute) exacerbation; R91.8 Other nonspecific abnormal finding of lung field; I10 Essential (primary) hypertension; K21.9 Gastro-esophageal reflux disease without esophagitis; I25.2 Old myocardial infarction; F31.9 Bipolar disorder, unspecified; Z62.810 Personal history of physical and sexual abuse in childhood; Z87.828 Personal history of other (healed) physical injury and trauma; Z86.79 Personal history of other diseases of the circulatory system; Z87.09 Personal history of other diseases of the respiratory system; Z90.49 Acquired absence of other specified parts of digestive tract; Z86.73 Personal history of transient ischemic attack (TIA), and cerebral infarction without residual deficits; Z88.6 Allergy status to analgesic agent; Z88.5 Allergy status to narcotic agent; Z91.041 Radiographic dye allergy status
CPT/HCPCS: 71046; 80048; 84484; 84702; 84999; 85027; 90839; 94640; 94644; 99281; 99285; J3475; J7030; J7512